=== PATIENT | female | born 1935 | race Caucasian/White ===

== ENCOUNTER 2016-11-29 10:15 | Emergency (ER) | payer MEDICARE ==
--- NOTE | 2016-11-29 11:58 | UC ---
UC General HPI - HPI Summary HPI Summary: Patient has had a cyst like thing in her mouth has been there for a few days, no pain or redness noted. - History of Current Complaint Chief Complaint: UCGU Stated Complaint: ORAL COMPLAINT Time Seen by Provider: 11/29/16 11:29 Hx Obtained From: Patient Onset/Duration: Sudden Onset, Lasting Days Timing: Constant - Allergy/Home Medications Allergies/Adverse Reactions: Allergies Allergy/AdvReac Type Severity Reaction Status Date / Time No Known Allergies Allergy Verified 11/29/16 11:43 PMH/Surg Hx/FS Hx/Imm Hx Previously Healthy: Yes Endocrine History Of: Reports: Thyroid Disease Denies: Diabetes Cardiovascular History Of: Reports: Hypertension Denies: Cardiac Disorders Respiratory History Of: Reports: Asthma - Surgical History Surgical History: Yes Surgery Procedure, Year, and Place: partial hysterectomy - Family History Known Family History: Positive: Hypertension - Social History Alcohol Use: None Substance Use Type: None Smoking Status (MU): Former Smoker When Did the Patient Quit Smoking/Using Tobacco: 20 + years ago - Immunization History Most Recent Influenza Vaccination: may 2015 Review of Systems Constitutional: Negative Skin: Negative Eyes: Negative ENT: Other - lesion in mouth Respiratory: Negative Cardiovascular: Negative Gastrointestinal: Negative Genitourinary: Negative Motor: Negative Neurovascular: Negative Musculoskeletal: Negative Neurological: Negative Psychological: Negative All Other Systems Reviewed And Are Negative: Yes Physical Exam Triage Information Reviewed: Yes Appearance: Well-Appearing, Well-Nourished, Pain Distress Vital Signs: Initial Vital Signs Temp 98.4 F 11/29/16 11:38 Pulse 58 11/29/16 11:38 Resp 20 11/29/16 11:38 BP 169/59 11/29/16 11:38 Vital Signs Reviewed: Yes Eye Exam: Normal Eyes: Positive: Conjunctiva Clear ENT Exam: Normal ENT: Positive: Normal ENT inspection, Hearing grossly normal, TMs normal, Other : - small hard cycst in right corner of mouth, non red, not tender, blood filled Dental Exam: Normal Neck exam: Normal Neck: Positive: Supple, Nontender, No Lymphadenopathy Respiratory Exam: Normal Respiratory: Positive: Chest non-tender, Lungs clear, Normal breath sounds Cardiovascular Exam: Normal Abdominal Exam: Normal Bowel Sounds: Positive: Present Musculoskeletal Exam: Normal Neurological Exam: Normal Psychological Exam: Normal Skin Exam: Normal Course/Dx - Course Course Of Treatment: hx obtained, exam performed, cyst examined, no erythema, it is discreet and no other lesions noted. no treatment at this time. if persists recommend follow up with PCP, - Differential Dx - Multi-Symptom Provider Diagnoses: oral muccoceal Discharge - Discharge Plan Condition: Stable Disposition: HOME Additional Instructions: You have an oral muccoceal. No treatment at this time. many times the body will reabsorbe it on its own. If it persists for several weeks, you kandy want to refer to your PCP for surgical removal. there is no need for concern at this time.
[2016-11-29 12:18] VITALS: BP 164/76
== END 2016-11-29 12:18 | disposition home or self-care (01) ==
LOC: UCCORT 10:15
DX: K13.70 Unspecified lesions of oral mucosa (principal); Z87.891 Personal history of nicotine dependence
CPT/HCPCS: 99211; G0463

== ENCOUNTER 2017-05-03 07:33 | Emergency (ER) | payer MEDICARE ==
[2017-05-03 08:04] VITALS: BP 144/66
--- NOTE | 2017-05-03 08:47 | UC ---
Complaint Female HPI - HPI Summary HPI Summary: urinary burning and frequency x 1 day + blood in the urine, no fever, no chills, no flank pain - History Of Current Complaint Chief Complaint: UCGU Stated Complaint: BLOOD IN URINE Hx Obtained From: Patient Onset/Duration: Sudden Onset, Lasting Days - 41, Still Present Timing: Constant Severity Initially: Moderate Severity Currently: Moderate Pain Intensity: 7 Pain Scale Used: 0-10 Numeric Character: Burning Aggravating Factor(s): Urination Associated Signs And Symptoms: Negative: Fever, Back Pain, Vaginal Bleeding/ Discharge, Vaginal Discharge, Nausea, Vomiting(# Of Episodes =), Genital Swelling, Genital Blisters, Retained Foregin Body (Specify) - Allergies/Home Medications Allergies/Adverse Reactions: Allergies Allergy/AdvReac Type Severity Reaction Status Date / Time Ciprofloxacin [From Cipro] Allergy Nausea Verified 05/03/17 07:42 PMH/Surg Hx/FS Hx/Imm Hx Cardiovascular History: Hypertension - Surgical History Surgical History: Yes Surgery Procedure, Year, and Place: partial hysterectomy. Cataracts - Family History Known Family History: Positive: Hypertension - Social History Alcohol Use: None Substance Use Type: None Smoking Status (MU): Former Smoker When Did the Patient Quit Smoking/Using Tobacco: 20 + years ago - Immunization History Most Recent Influenza Vaccination: 2016 Most Recent Tetanus Shot: UTD Most Recent Pneumonia Vaccination: UTD Review of Systems Constitutional: Negative Skin: Negative Eyes: Negative ENT: Negative Respiratory: Negative Cardiovascular: Negative Genitourinary: Dysuria, Hematuria, Frequency All Other Systems Reviewed And Are Negative: Yes Physical Exam Triage Information Reviewed: Yes Appearance: Well-Appearing, No Pain Distress, Well-Nourished Vital Signs: Initial Vital Signs Temp 98.1 F 05/03/17 07:43 Pulse 63 05/03/17 07:43 Resp 16 05/03/17 07:43 BP 144/66 05/03/17 07:43 Pulse Ox 95 05/03/17 07:43 Vital Signs Reviewed: Yes Eyes: Positive: Conjunctiva Clear ENT: Positive: Normal ENT inspection, Hearing grossly normal, Pharynx normal Neck: Positive: Supple, Nontender, No Lymphadenopathy Respiratory: Positive: Chest non-tender, Lungs clear, Normal breath sounds Cardiovascular: Positive: RRR, No Murmur, Pulses Normal Abdominal Exam: Normal Abdomen Description: Positive: Nontender, Soft. Negative: CVA Tenderness (R), CVA Tenderness (L), Distended, Guarding Bowel Sounds: Positive: Present Neurological Exam: Normal Skin Exam: Normal Complaint Female Dx - Differential Dx/Diagnosis Provider Diagnoses: UTI Discharge - Discharge Plan Condition: Stable Disposition: HOME Prescriptions: Nitrofurantoin Monohyd Macro [Macrobid] 100 mg PO BID #14 cap Patient Education Materials: Urinary Tract Infection in Women (ED) Referrals: Maria Antonia Rosas MD [Primary Care Provider] - 7 Days
== END 2017-05-03 08:08 | disposition home or self-care (01) ==
LOC: UCCORT 07:33
DX: N39.0 Urinary tract infection, site not specified (principal); I10 Essential (primary) hypertension; Z87.891 Personal history of nicotine dependence; Z88.3 Allergy status to other anti-infective agents
CPT/HCPCS: 81003; 87077; 87086; 99212; G0463

== ENCOUNTER 2018-04-18 07:11 | Emergency (ER) | payer MEDICARE ==
[2018-04-18 07:26] VITALS: BP 162/71
[2018-04-18] MEDS ORDERED: Phenazopyridine TAB* 100 MG PO ONE (07:36)
[2018-04-18] MEDS ORDERED: Cephalexin CAP* 500 MG PO ONE (07:36)
--- NOTE | 2018-04-18 07:36 | UC ---
Complaint Female HPI - HPI Summary HPI Summary: C/O her typical UTI symptoms that woke her up at 0300 today. Last UTI several months ago. - History Of Current Complaint Stated Complaint: URINARY Time Seen by Provider: 04/18/18 07:18 Hx Obtained From: Patient Onset/Duration: Sudden Onset, Lasting Hours - 4, Worse Since - onset Timing: Constant Severity Initially: Moderate Severity Currently: Moderate Pain Intensity: 7 Character: Burning Aggravating Factor(s): Urination Alleviating Factor(s): Nothing Associated Signs And Symptoms: Positive: Back Pain. Negative: Fever, Vaginal Discharge, Nausea, Vomiting(# Of Episodes =) Related Hx: Similar Episode/Dx as: - UTI - Allergies/Home Medications Allergies/Adverse Reactions: Allergies Allergy/AdvReac Type Severity Reaction Status Date / Time ciprofloxacin [From Cipro] Allergy Nausea Verified 04/18/18 07:17 PMH/Surg Hx/FS Hx/Imm Hx Endocrine History: Hypothyroidism Cardiovascular History: Hypertension Respiratory History: Asthma - Surgical History Surgical History: Yes Surgery Procedure, Year, and Place: partial hysterectomy - Family History Known Family History: Positive: Hypertension Negative: Diabetes - Social History Occupation: Retired Lives: Alone Alcohol Use: Rare Substance Use Type: None Smoking Status (MU): Former Smoker When Did the Patient Quit Smoking/Using Tobacco: 20 + years ago - Immunization History Most Recent Influenza Vaccination: may 2015 Most Recent Tetanus Shot: UTD Most Recent Pneumonia Vaccination: UTD Review of Systems Gastrointestinal: Diarrhea - earlier in the week, but has resolved Genitourinary: Dysuria, Frequency, Urgency Is Patient Immunocompromised?: No All Other Systems Reviewed And Are Negative: Yes Physical Exam Triage Information Reviewed: Yes Appearance: Well-Appearing, Well-Nourished, Pain Distress - mild Vital Signs: Initial Vital Signs Temp 97.7 F 04/18/18 07:19 Pulse 68 04/18/18 07:19 Resp 20 04/18/18 07:19 BP 162/71 04/18/18 07:19 Pulse Ox 98 04/18/18 07:19 Vital Signs Reviewed: Yes Eyes: Positive: Conjunctiva Clear Neck exam: Normal Respiratory Exam: Normal Cardiovascular Exam: Normal Abdomen Description: Negative: Nontender - mild suprapubic tenderness, CVA Tenderness (R), CVA Tenderness (L), McBurney's Point Tenderness, Peritoneal Signs Musculoskeletal Exam: Normal Neurological Exam: Normal Psychological Exam: Normal Skin Exam: Normal Complaint Female Dx - Differential Dx/Diagnosis Differential Diagnosis/HQI/PQRI: Appendicitis, Renal Colic, Urinary Tract Infection Provider Diagnoses: Acute cystitis without hematuria Discharge - Sign-Out/Discharge Documenting (check all that apply): Patient Departure - Discharge Plan Condition: Stable Disposition: HOME Prescriptions: Cephalexin CAP* [Keflex 500 CAP*] 500 mg PO QID #20 cap Phenazopyridine 200 mg (NF) [Pyridium 200 MG tab *] 200 mg PO TID PRN #6 tab PRN Reason: UTI symptoms Patient Education Materials: Urinary Tract Infection in Women (ED), Phenazopyridine (By mouth), Cephalexin (By mouth) Referrals: Maria Antonia Rosas MD [Primary Care Provider] - - Billing Disposition and Condition Condition: STABLE Disposition: Home
== END 2018-04-18 07:47 | disposition home or self-care (01) ==
LOC: UCCORT 07:11
DX: N30.90 Cystitis, unspecified without hematuria (principal)
CPT/HCPCS: 81003; 87086; 99212; A9270-GY; G0463